=== PATIENT | female | born 1990 | race African-American/Black ===

== ENCOUNTER 2023-11-28 07:12 | Emergency (ER) | payer BC, OTHER, SELFPAY ==
[2023-11-28 07:17] VITALS: BP 167/119; PULSE 94; RESP 18; TEMP 36.4; O2SAT 100
--- NOTE | 2023-11-28 07:32 | ED.DENTAL ---
HPI - Dental/Oral General Chief complaint: Dental/Oral Stated complaint: right sided facial pain Time Seen by Provider: 11/28/23 07:13 History of Present Illness HPI Narrative: 33-year-old female presented to the emergency department for evaluation of right facial pain. Patient does have dental pain and was started on antibiotics on Tuesday. Patient states she started on amoxicillin. Patient reports that this morning she woke up she was having some increased facial pain. Patient denies any difficulty breathing or swallowing. Patient has been taking ibuprofen for pain control. Patient declined needing any additional medications for pain control. Patient states she does have follow-up with her dentist later today. Related Data Allergies Allergy/AdvReac Type Severity Reaction Status Date / Time No Known Allergies Allergy Verified 11/28/23 07:29 Review of Systems Review of Systems: All systems reviewed & are unremarkable except as noted in HPI and below Exam Narrative: APPEARANCE: Well appearing, no pain, no distress, well-nourished. HEAD: normocephalic, right facial swelling. EYES: PERRLA/EOMI, conjunctivae clear. NOSE: Normal no drainage EARS:TMS clear with good light reflex. THROAT: Pharynx clear, no exudate. Mouth: Dental caries with no abscess no trismus NECK: Supple. No adenopathy, no masses. RESPIRATORY: Airway patent, respirations nonlabored. Clear to auscultation bilaterally, no rales, rhonchi, wheezing. CARDIOVASCULAR: Regular rate and rhythm without murmurs rubs or gallops. ABDOMINAL: Soft, nontender, nondistended, normal bowel sounds MUSCULOSKELETAL: Moves all extremities. Strength/ROM intact, No edema, No calf tenderness. NEURO: Alert. Cranial nerves II through XII intact. Good gait. Good coordination SKIN: Warm, dry. Normal Color Course Vital Signs Vital signs: Vital Signs Temperature 97.5 F L 11/28/23 07:17 Pulse Rate 94 11/28/23 07:17 Respiratory Rate 18 11/28/23 07:17 Blood Pressure 167/119 H 11/28/23 07:17 Pulse Oximetry 100 11/28/23 07:17 Oxygen Delivery Room Air 11/28/23 07:17 Temperature 97.5 F L 11/28/23 07:17 Pulse Rate 85 11/28/23 08:16 Respiratory Rate 17 11/28/23 08:16 Blood Pressure 166/121 H 11/28/23 08:16 Pulse Oximetry 99 11/28/23 08:16 Oxygen Delivery Room Air 11/28/23 07:17 MDM - Dental/Oral MDM Narrative Medical decision making narrative: 33-year-old female presents to the emergency department for evaluation right sided facial pain. Suspect dental pain. Patient has only been on antibiotics for 3 doses. Patient does have follow-up scheduled with her dentist today. Patient was encouraged to take Tylenol and ibuprofen for pain control. Differential Diagnosis Differential diagnosis: Likely gingival abscess, dental caries, toothache, dental abscess and fracture of tooth Discharge Plan Discharge Clinical Impression: Toothache, Dental caries, Facial pain Patient Disposition: Home, Self-Care Condition: Stable Instructions: Antibiotic Form, Toothache (ED) Additional Instructions: Continue antibiotics as directed. Continue to have close follow-up with your dentist as scheduled today. If you have any worsening symptoms then please call or return to the emergency department. Follow-up/Referrals: PHYSICIAN,GOLF CADDY [Non-Staff] - Stand Alone Forms: Work/School Release IP
[2023-11-28 08:16] VITALS: BP 166/121; PULSE 85; RESP 17; O2SAT 99
== END 2023-11-28 08:17 | disposition home or self-care (01) ==
LOC: ANHED 07:38
PROVIDERS: Emergency Provider Emergency Medicine
DX: K02.9 Dental caries, unspecified (principal)
CPT/HCPCS: 99281